=== PATIENT | male | born 1985 | race Caucasian/White ===

== ENCOUNTER 2019-02-28 20:13 | Emergency (ER) | payer OTHER ==
[~2019-02-28] VITALS: Ht 134.6 cm; Wt 68.0 kg
[2019-02-28 20:44] VITALS: BP 131/85
--- NOTE | 2019-02-28 20:56 | NUR ---
URINE SPECIMEN COLLECTED AND SENT TO LAB.
--- NOTE | 2019-02-28 20:59 | NUR ---
NICOLLE GAYTAN AT BEDSIDE FOR EVAL.
--- NOTE | 2019-02-28 21:17 | NUR ---
Patient discharged to home in stable condition. Written and verbal after care instructions given. Patient verbalizes understanding of instruction.
== END 2019-02-28 21:18 | disposition home or self-care (01) ==
LOC: ER 20:25
DX: J06.9 Acute upper respiratory infection, unspecified (principal); K59.00 Constipation, unspecified; R11.2 Nausea with vomiting, unspecified; F17.200 Nicotine dependence, unspecified, uncomplicated